=== PATIENT | male | born 1935 | race Hispanic/Latino ===

== ENCOUNTER 2016-10-10 07:27 | Outpatient (CLI) | payer MEDICARE, OTHER ==
--- NOTE | 2016-10-11 07:21 | Vascular Lab Report ---
RENAL ARTERY DUPLEX EXAM: REASON FOR EXAM: Abnormal renal function. NOTE: Visualization is technically poor due to body habitus and bowel gas. Both renal arteries were poorly visualized.. COMMENTS ON THE AORTA: The aorta is patent. Normal flow velocities are observed. No aneurysmal dilatation is noted. Mild atherosclerotic change is identified. The celiac artery is not visualized. The superior mesenteric artery is not visualized. COMMENTS ON THE RIGHT KIDNEY: The kidney measures 13.5 centimeters in greatest dimension. No obvious parenchymal abnormalities are noted. The renal artery is patent. Maximum systolic velocity is 78 cm/sec. This finding is consistent with less than 60% diameter reduction. Renal aortic index is 0.9. This finding is consistent with less than 60% diameter reduction. Overall findings are consistent with less than 60% diameter reduction in the renal artery. COMMENTS ON THE LEFT KIDNEY: The kidney measures 9 centimeters in greatest dimension. No obvious parenchymal abnormalities are noted. The renal artery is patent. Maximum systolic velocity is 41 cm/sec. This finding is consistent with less than 60% diameter reduction. Renal aortic index is 0.5 . This finding is consistent with less than 60% diameter reduction. Overall findings are consistent with less than 60% diameter reduction in the renal artery. IMPRESSION: RIGHT KIDNEY: Less than 60% diameter reduction in the renal artery. LEFT KIDNEY: Less than 60% diameter reduction in the renal artery. Clinical correlation is recommended. The results are not reliable due to poor visualization. If necessary consider an MRA.
== END 2016-10-10 07:28 | disposition home or self-care (01) ==
LOC: VAS 07:27
PROVIDERS: ATTEND Internal Medicine Nephrology
DX: R94.4 Abnormal results of kidney function studies (principal)
CPT/HCPCS: 93975